=== PATIENT | male | born 1975 | race Caucasian/White ===

== ENCOUNTER → 2017-02-13 | Outpatient (CLI) | payer OTHER ==
--- NOTE | 2017-02-13 18:05 | Diagnostic Imaging Report ---
EXAMINATION: Three views of the lumbar spine. INDICATION: Back pain. FINDINGS: There is satisfactory alignment of the lumbar spine. The vertebral body heights are preserved. Disc heights are also preserved. No significant osteophyte formation is noted. The SI joints demonstrate minimal sclerotic changes. The paraspinal soft tissues appear unremarkable. IMPRESSION: Minimal sclerotic changes in the SI joints, probably degenerative. Dictated on workstation # [id number]
--- NOTE | 2017-02-13 18:53 | Diagnostic Imaging Report ---
EXAMINATION: Three views of the thoracic spine. INDICATION: Back pain. FINDINGS: There is straightening of the thoracic curvature which may relate to muscle spasm. The vertebral body heights are preserved. Disc heights are also preserved. No significant osteophyte formation seen. Alignment of the posterior spinal line is satisfactory. The paraspinal soft tissues appear unremarkable. IMPRESSION: Straightening of the thoracic curvature, could relate to muscle spasm. Dictated on workstation # [id number]
--- NOTE | 2017-02-13 18:55 | Diagnostic Imaging Report ---
EXAMINATION: Three views of the cervical spine. INDICATION: Neck pain. FINDINGS: There is reversal of the lordotic curvature in the upper cervical spine. The alignment of the posterior spinal line is satisfactory. There is mild disc height loss at C4/5 and C5/6 levels with mild anterior osteophytes. Minimal posterior osteophytes are suggested at these two levels. There is satisfactory alignment of the lateral masses of C1 and C2 seen on the open-mouth odontoid view. The prevertebral soft tissues appear unremarkable. IMPRESSION: Disc degenerative changes at C4/5 and C5/6 levels. Dictated on workstation # [id number]
== END ==
LOC: RAD 10:03
PROVIDERS: ATTEND Chiropractor
DX: M50.322 Other cervical disc degeneration at C5-C6 level (principal); M54.6 Pain in thoracic spine; M54.5 Low back pain
CPT/HCPCS: 72040; 72072; 72100